=== PATIENT | female | born 1975 | race Caucasian/White ===

== ENCOUNTER 2016-06-05 08:58 | Emergency (ER) | payer MEDICAID ==
[2016-05-08 12:43] VITALS: BMI 52.1
[~2016-06-05 08:58] MED LIST: IBUPROFEN600 MG PO; PERCOCET 5-3251 TAB PO
== END 2016-06-05 10:46 | disposition home or self-care (01) ==
LOC: D.ER 08:58
DX: N93.9 Abnormal uterine and vaginal bleeding, unspecified (principal); R10.2 Pelvic and perineal pain; C53.9 Malignant neoplasm of cervix uteri, unspecified; F17.200 Nicotine dependence, unspecified, uncomplicated; M54.5 Low back pain; F32.9 Major depressive disorder, single episode, unspecified

== ENCOUNTER 2016-12-16 21:03 | Emergency (ER) | payer MEDICAID ==
[2016-05-08 12:43] VITALS: BMI 52.1
[2016-12-16 21:38] LABS: BASOPHILS 0.2 % (0-2); EOSINOPHILS 2.3 % (0-7); HEMATOCRIT 31.2 % (36.0-48.0); HEMOGLOBIN 9.7 g/dL (12-16); IMMATURE GRANULOCYTES 0.2 % (0-5); LYMPHOCYTES 13.6 % (15-50); MCH 24.6 pg (26.0-34.0); MCHC 31.1 g/dL (31.0-37.0); MCV 79.2 fL (80.0-100.0); MEAN PLATELET VOLUME 8.4 fL (7.4-10.4); MONOCYTES 7.6 % (2-11); NEUTROPHILS 76.1 % (40-80); RBC 3.94 10x6/uL (4.00-5.40); RDW 18.6 % (11.5-14.5); WBC 5.1 10x3/uL (4.8-10.8)
[2016-12-16 21:45] LABS: HCG SERUM NEGATIVE (NEGATIVE)
[2016-12-16 21:46] LABS: PLATELET COUNT 219 10x3/uL (130-400)
[2016-12-16 21:51] LABS: ALBUMIN 2.7 g/dL (3.4-5.0); ANION GAP 9.5 mmol/L (8-16); BILIRUBIN - TOTAL 0.36 mg/dL (0.2-1.3); CALCIUM 8.1 mg/dL (8.5-10.1); CARBON DIOXIDE 31.9 mmol/L (21.0-32.0); CREATININE - SERUM 0.9 mg/dL (0.6-1.3); POTASSIUM - SERUM 3.4 mmol/L (3.5-5.1); PROTEIN - SERUM 6.8 g/dL (6.4-8.2)
== END 2016-12-17 00:39 | disposition other institution (70) ==
LOC: D.ER 21:03
PROVIDERS: Family Medicine
DX: N93.9 Abnormal uterine and vaginal bleeding, unspecified (principal); Z85.41 Personal history of malignant neoplasm of cervix uteri